=== PATIENT | female | born 1965 | race African-American/Black ===

== ENCOUNTER 2024-08-13 14:26 | Inpatient (IN) | payer OTHER ==
[2024-08-13 14:55] VITALS: BMI 44.2
[2024-08-13] MEDS ORDERED: BENZOCAINE/MENTHOL (CHLORASEPTIC ) LOZENGE MM PRN (16:49)
[2024-08-13] MEDS ORDERED: ACETAMINOPHEN 325 MG TABLET (FP) PO PRN (16:49)
[2024-08-13] MEDS ORDERED: POLYETHYLENE GLYCOL (HEALTHYLAX) 3350 17 GM PACKET PO PRN (16:49)
[2024-08-13] MEDS ORDERED: MAGNESIUM HYDROX 2400MG/30ML ORAL SUSPENSION 30 ML CUP PO PRN (16:49)
[2024-08-13] MEDS ORDERED: BENZONATATE 200 MG CAPSULE PO PRN (16:49)
[2024-08-13] MEDS ORDERED: guaiFENesin 600 MG TABLET.ER (FP) PO PRN (16:49)
[2024-08-13] MEDS ORDERED: hydrOXYzine PAMOATE 25 MG CAPSULE (FP) PO PRN (16:49)
[2024-08-13] MEDS ORDERED: LOPERAMIDE HCL 2 MG CAPSULE PO PRN (16:49)
[2024-08-13] MEDS ORDERED: MAG HYDROX/AL HYDROX/SIMETH 30 ML UNIT-DOSE CUP PO PRN (16:49)
[2024-08-13] MEDS ORDERED: NALOXONE (NARCAN) HCL 4 MG/0.1 ML SPRAY NS PRN (16:49)
[2024-08-13] MEDS: metFORMIN HCL 500 MG TABLET (FP) PO ONE (18:44)
[2024-08-13] MEDS: MELATONIN 5 MG TABLETS PO SCH (21:46)
[2024-08-13] MEDS: ATORVASTATIN CA 10 MG TABLET (FP) PO SCH (21:47)
[2024-08-13] MEDS: risperiDONE 2 MG TABLET PO SCH (21:47)
[2024-08-13] MEDS: GABAPENTIN 300 MG CAPSULE PO SCH (21:47)
[2024-08-13] MEDS: DIVALPROEX SODIUM 500 MG TABLET E.C. PO SCH (21:48)
[2024-08-13] MEDS: levETIRAcetam 500 MG TABLET (FP) PO SCH (21:48)
[2024-08-13] MEDS: THIAMINE 100 MG TABLET PO SCH (21:48)
[2024-08-13] MEDS: OXcarbazepine 300 MG TABLET (UD) PO SCH (21:49)
[2024-08-14] MEDS: PRENATAL VITAMINS W/ FOLIC ACID TABLET (FP) PO SCH (11:00)
[2024-08-14] MEDS: ASPIRIN COATED 81 MG TABLET.EC PO SCH (11:00)
[2024-08-14] MEDS: FUROSEMIDE 20 MG TABLET (FP) PO SCH ×2 (11:00→11:19)
[2024-08-14] MEDS: ASPIRIN 81 MG CHEWABLE TABLETS PO SCH (11:00)
[2024-08-14] MEDS: metFORMIN HCL 500 MG TABLET (FP) PO SCH (11:00)
[2024-08-14] MEDS: GABAPENTIN 400 MG CAPSULE PO SCH (11:09)
[2024-08-14] MEDS: levETIRAcetam 500 MG TABLET (FP) PO SCH ×2 (11:09→11:19)
[2024-08-14] MEDS: DIVALPROEX SODIUM 500 MG TABLET E.C. PO SCH (11:09)
[2024-08-14] MEDS ORDERED: risperiDONE 1 MG TABLET PO SCH (11:16)
[2024-08-14] MEDS: ATORVASTATIN CA 10 MG TABLET (FP) PO SCH (11:19)
[2024-08-14] MEDS: GABAPENTIN 300 MG CAPSULE PO SCH (11:19)
[2024-08-14] MEDS: risperiDONE 2 MG TABLET PO SCH (11:20)
[2024-08-14 13:27] LABS: HEMATOCRIT 48.2 % (34.1-44.9); HEMOGLOBIN 14.2 g/dL (11.2-15.7); MCHC 29.5 g/dl (32.2-35.5); MEAN CELL VOLUME 89.3 fl (79.4-94.8); MEAN PLT VOLUME 10.4 fl (9.4-12.3); PLATELET COUNT 284 x10^3/uL (182-369); RDW 18.3 % (12.3-16.6)
[2024-08-14 14:32] LABS: ALBUMIN 2.7 g/dl (3.4-5.0); ALK PHOS 51 U/L (45-117); ANION GAP 12 mmol/L (4-13); BILIRUBIN,TOTAL 0.4 mg/dL (0.2-1); BLOOD UREA NITROGEN 13.9 mg/dL (7-18); CALCIUM 8.9 mg/dL (8.5-10.1); CHLORIDE 109 mmol/L (98-107); CO2 24 mmol/L (21-32); CREATININE 0.6 mg/dL (0.55-1.3); GLUCOSE,RANDOM 76 mg/dL (74-106); POTASSIUM 5.1 mmol/L (3.5-5.1); SGOT/AST 30 U/L (15-37); SGPT/ALT 15 U/L (13-61); SODIUM 146 mmol/L (136-145); SYPHILIS W/ RPR CONF REACTIVE (NONREACTIVE); TOT PROT 5.6 g/dl (6.4-8.2)
[2024-08-14 14:38] LABS: HCV DIAGNOSTIC IN-HOUSE W/RFLX NON-REACTIVE (NONREACTIVE)
[2024-08-14] MEDS: ACETAMINOPHEN 325 MG TABLET (FP) PO PRN (17:07)
[2024-08-14] MEDS: risperiDONE 1 MG TABLET PO SCH (21:50)
[2024-08-14] MEDS ORDERED: DIVALPROEX SODIUM 500 MG TABLET E.C. PO SCH (22:00)
[2024-08-14] MEDS: IBUPROFEN 600 MG TABLET (FP) PO PRN (22:21)
[2024-08-15 09:37] LABS: URINE APPEARANCE CLOUDY; URINE BILIRUBIN NEGATIVE (NEGATIVE); URINE COLOR YELLOW; URINE GLUCOSE (UA) NEGATIVE (NEGATIVE); URINE KETONE TRACE (NEGATIVE); URINE LEUK ESTERASE NEGATIVE (NEGATIVE); URINE NITRITE NEGATIVE (NEGATIVE); URINE PROTEIN TRACE (NEGATIVE)
[2024-08-15] MEDS: METHYL SALICYLATE/MENTHOL 30 GM TUBE TP SCH (10:26)
[2024-08-15] MEDS: CITALOPRAM HYDROBROMIDE 20 MG TABLET PO SCH (10:27)
[2024-08-15] MEDS: METHOCARBAMOL 500 MG TABLET PO SCH (13:19)
[2024-08-15] MEDS: diazePAM 5 MG TABLET PO ONE (13:46)
[2024-08-15] MEDS ORDERED: LORazepam 2 MG/ML SDV VIAL ONE ×3 (17:55→18:13)
[2024-08-15] MEDS: LORazepam 2 MG/ML SDV VIAL IM ONE ×2 (18:01→18:07)
[2024-08-15] MEDS: traZODone HCL 50 MG TABLET (FP) PO SCH (22:52)
[2024-08-17] MEDS: metFORMIN HCL 500 MG TABLET (FP) PO SCH (07:29)
[2024-08-17] MEDS: METHOCARBAMOL 750 MG TABLET PO SCH (21:53)
[2024-08-18] MEDS: IBUPROFEN 400 MG TABLET (FP) PO PRN (06:45)
[2024-08-18] MEDS ORDERED: TUBERCULIN PPD 5 TU/0.1ML VIAL ID ONE ×2 (10:22→10:36)
[2024-08-18] MEDS: GABAPENTIN 400 MG CAPSULE PO SCH (15:37)
[2024-08-18] MEDS: GABAPENTIN 100 MG CAPSULE PO SCH (15:38)
[2024-08-18] MEDS: SENNOSIDES 8.6MG TABLET (FP) PO SCH (21:12)
[2024-08-18] MEDS: ATORVASTATIN CA 40 MG TABLET (FP) PO SCH (21:12)
[2024-08-18] MEDS: MONTELUKAST NA 10 MG TABLET PO SCH (21:12)
[2024-08-19 07:02] VITALS: RESP 18
[2024-08-19] MEDS: PANTOPRAZOLE 40 MG TABLET PO SCH (07:28)
[2024-08-19] MEDS: FUROSEMIDE 40 MG TABLET (FP) PO SCH (10:17)
[2024-08-19] MEDS: LIDOCAINE 4% PATCH TP ONE (19:39)
[2024-08-19] MEDS: NAPROXEN 500 MG TABLET PO SCH (21:23)
[2024-08-19] MEDS ORDERED: LORazepam 2 MG/ML SDV VIAL ONE (22:28)
[2024-08-19 22:31] VITALS: BP 136/76; PULSE 90; TEMP 97.7
[2024-08-19] MEDS: LORazepam 2 MG/ML SDV VIAL IM ONE (22:32)
[2024-08-20] MEDS ORDERED: LIDOCAINE PATCH REMOVAL MC SCH (07:00)
== END 2024-08-20 06:23 | disposition short-term general hospital (02) | DRG 772 ==
LOC: YASAS 14:26 → SUATTDRO 14:26 → Y3NR 16:58 → Y5N 08-16 12:18
PROVIDERS: ADMIT Psychiatry & Neurology Pain Medicine; ATTEND Psychiatry & Neurology Pain Medicine
PROC: HZ42ZZZ Group Counseling for Substance Abuse Treatment, Cognitive-Behavioral (ICD-10-PCS; principal; 2024-08-13)
DX: F10.20 Alcohol dependence, uncomplicated (principal); F14.20 Cocaine dependence, uncomplicated; F17.210 Nicotine dependence, cigarettes, uncomplicated; F31.9 Bipolar disorder, unspecified; F43.10 Post-traumatic stress disorder, unspecified; E78.5 Hyperlipidemia, unspecified; G40.909 Epilepsy, unspecified, not intractable, without status epilepticus; I25.10 Atherosclerotic heart disease of native coronary artery without angina pectoris; I10 Essential (primary) hypertension; E11.9 Type 2 diabetes mellitus without complications; Z79.84 Long term (current) use of oral hypoglycemic drugs; M19.012 Primary osteoarthritis, left shoulder; M17.0 Bilateral primary osteoarthritis of knee; Z62.810 Personal history of physical and sexual abuse in childhood; Z95.0 Presence of cardiac pacemaker; Z88.8 Allergy status to other drugs, medicaments and biological substances
CPT/HCPCS: 36415; 71045-TC-FY; 73030-TC-LT-FY; 80053; 80164; 80177; 80183; 80305; 80307; 81003; 82962; 85027; 86593; 86780; 86803; 87811; 93005; 93010

== ENCOUNTER 2024-08-21 16:16 | Inpatient (IN) | payer OTHER ==
[2024-08-21 16:58] VITALS: BMI 44.2
[2024-08-21] MEDS ORDERED: MAG HYDROX/AL HYDROX/SIMETH 30 ML UNIT-DOSE CUP PO PRN (17:12)
[2024-08-21] MEDS ORDERED: BENZOCAINE/MENTHOL (CHLORASEPTIC ) LOZENGE MM PRN (17:12)
[2024-08-21] MEDS ORDERED: guaiFENesin 600 MG TABLET.ER (FP) PO PRN (17:12)
[2024-08-21] MEDS ORDERED: P-EPHED 60MG/TRIPROLIDI 2.5MG TABLET PO PRN (17:12)
[2024-08-21] MEDS ORDERED: POLYETHYLENE GLYCOL (HEALTHYLAX) 3350 17 GM PACKET PO PRN (17:12)
[2024-08-21] MEDS ORDERED: MAGNESIUM HYDROX 2400MG/30ML ORAL SUSPENSION 30 ML CUP PO PRN (17:12)
[2024-08-21] MEDS ORDERED: NALOXONE (NARCAN) HCL 4 MG/0.1 ML SPRAY NS PRN (17:12)
[2024-08-21] MEDS ORDERED: ACETAMINOPHEN 325 MG TABLET (FP) PO PRN (17:12)
[2024-08-21] MEDS ORDERED: IBUPROFEN 400 MG TABLET (FP) PO PRN (17:12)
[2024-08-21] MEDS ORDERED: NALOXONE HCL 0.4 MG/ML VIAL IVPUSH PRN (17:12)
[2024-08-21] MEDS ORDERED: BENZONATATE 200 MG CAPSULE PO PRN (17:12)
[2024-08-21] MEDS ORDERED: LOPERAMIDE HCL 2 MG CAPSULE PO PRN (17:12)
[2024-08-21] MEDS: OXcarbazepine 300 MG TABLET (UD) PO SCH (21:38)
[2024-08-21] MEDS: THIAMINE 100 MG TABLET PO SCH (21:38)
[2024-08-21] MEDS: DIVALPROEX SODIUM 500 MG TABLET E.C. PO SCH (21:39)
[2024-08-21] MEDS: MELATONIN 5 MG TABLETS PO SCH (21:39)
[2024-08-21] MEDS: ATORVASTATIN CA 10 MG TABLET (FP) PO SCH (21:39)
[2024-08-21] MEDS: SENNOSIDES 8.6MG TABLET (FP) PO SCH (21:40)
[2024-08-21] MEDS: levETIRAcetam 500 MG TABLET (FP) PO SCH (21:40)
[2024-08-21] MEDS: GABAPENTIN 100 MG CAPSULE PO SCH (21:40)
[2024-08-22] MEDS: IBUPROFEN 600 MG TABLET (FP) PO PRN (06:36)
[2024-08-22] MEDS: GABAPENTIN 100 MG CAPSULE PO SCH (09:59)
[2024-08-22] MEDS: MAGNESIUM OXIDE 400 MG TABLET (FP) PO SCH (09:59)
[2024-08-22] MEDS: PRENATAL VITAMINS W/ FOLIC ACID TABLET (FP) PO SCH (10:00)
[2024-08-22] MEDS ORDERED: GABAPENTIN 400 MG CAPSULE PO SCH (10:00)
[2024-08-22] MEDS ORDERED: levETIRAcetam 500 MG TABLET (FP) PO SCH (10:00)
[2024-08-22] MEDS: FOLIC ACID 1 MG TABLET (FP) PO SCH (10:00)
[2024-08-22] MEDS: ASPIRIN 81 MG CHEWABLE TABLETS PO SCH (10:00)
[2024-08-22] MEDS: risperiDONE 1 MG TABLET PO SCH ×2 (11:16→21:19)
[2024-08-22] MEDS: NIFEdipine E.R 60 MG TABLET PO SCH (11:16)
[2024-08-22] MEDS: CITALOPRAM HYDROBROMIDE 20 MG TABLET PO SCH (11:16)
[2024-08-22] MEDS: METHYL SALICYLATE/MENTHOL 30 GM TUBE TP SCH (12:19)
[2024-08-22] MEDS: risperiDONE 1 MG TABLET PO ONE (13:41)
[2024-08-22] MEDS: metFORMIN HCL 500 MG TABLET (FP) PO SCH (17:48)
[2024-08-22] MEDS: traZODone HCL 50 MG TABLET (FP) PO SCH (21:19)
[2024-08-22] MEDS ORDERED: risperiDONE 1 MG TABLET PO SCH (22:00)
[2024-08-25] MEDS: LIDOCAINE 5% TOPICAL PATCH TP SCH (12:02)
[2024-08-25] MEDS ORDERED: LORazepam 2 MG/ML SDV VIAL ONE (12:36)
[2024-08-25] MEDS: LORazepam 2 MG/ML SDV VIAL IM ONE (12:47)
[2024-08-25] MEDS: ALBUTEROL SO4 HFA INHALER IH PRN (17:35)
[2024-08-25] MEDS: LIDOCAINE PATCH REMOVAL MC SCH (21:36)
[2024-08-25] MEDS: traZODone HCL 50 MG TABLET (FP) PO SCH (22:33)
[2024-08-27 09:46] VITALS: BP 139/81; PULSE 88; RESP 16; TEMP 96.7
== END 2024-08-27 11:25 | disposition home or self-care (01) | DRG 772 ==
LOC: YASAS 16:16 → Y5N 17:18
PROVIDERS: ADMIT Psychiatry & Neurology Pain Medicine; ATTEND Psychiatry & Neurology Pain Medicine
PROC: HZ42ZZZ Group Counseling for Substance Abuse Treatment, Cognitive-Behavioral (ICD-10-PCS; principal; 2024-08-21)
DX: F10.20 Alcohol dependence, uncomplicated (principal); F14.20 Cocaine dependence, uncomplicated; F17.210 Nicotine dependence, cigarettes, uncomplicated; F19.282 Other psychoactive substance dependence with psychoactive substance-induced sleep disorder; F31.9 Bipolar disorder, unspecified; F19.24 Other psychoactive substance dependence with psychoactive substance-induced mood disorder; F43.10 Post-traumatic stress disorder, unspecified; G47.33 Obstructive sleep apnea (adult) (pediatric); I25.10 Atherosclerotic heart disease of native coronary artery without angina pectoris; I10 Essential (primary) hypertension; M17.0 Bilateral primary osteoarthritis of knee; Z95.0 Presence of cardiac pacemaker; Z99.89 Dependence on other enabling machines and devices; Z88.1 Allergy status to other antibiotic agents; Z88.8 Allergy status to other drugs, medicaments and biological substances
CPT/HCPCS: 36415; 80164; 80177; 80183; 80305; 82962